=== PATIENT | male | born 1965 | race Caucasian/White ===

== ENCOUNTER 2017-07-28 13:02 | Emergency (ER) | payer MEDICARE ==
[~2017-07-28] VITALS: Ht 170.1 cm; Wt 72.6 kg
[~2017-07-28 13:02] MED LIST: AMOXICILLIN500 M2 PO; CLARITIN10 MG PO; FLONASE ALLERG9.9 ML NAS; LIDEX 0.05% CRE15 GM T; ZITHROMAX Z PA250 MG PO; ZOLOFT; ZYRTEC10 M3 PO
[2017-07-28 13:26] LABS: BASO # 0.1 10*3/uL (0.0-0.1); BASO % 0.8 % (0.0-1.0); EOS # 0.4 10*3/uL (0.0-0.4); EOS % 4.7 % (1.0-4.0); HEMATOCRIT 42.3 % (42.0-52.0); HEMOGLOBIN 14.7 g/dl (14.0-18.0); LYMPH # 2.5 10*3/uL (1.3-4.4); LYMPH % 33.1 % (27.0-41.0); MEAN CELL VOLUME 95.1 fl (80.0-94.0); MEAN CORPUSCULAR HGB CONC 34.8 g/dl (33.0-37.0); MEAN PLATELET VOLUME 9.9 fl (9.6-12.3); MONO # 0.5 10*3/uL (0.1-1.0); MONO % 7.2 % (3.0-9.0); NEUT # 4.1 10*3/uL (2.3-7.9); NEUT % 54.1 % (47.0-73.0); PLATELET COUNT AUTOMATED 163 10*3/uL (130-400); RED BLOOD COUNT 4.45 10*6/uL (4.50-5.90); RED CELL DISTRI WIDTH 13.1 % (0-14.5); WHITE BLOOD COUNT 7.5 10*3/uL (4.8-10.8)
[2017-07-28 13:35] LABS: ACT PARTIAL THROMBO TIME 26.6 SECONDS (20.8-31.5); INTERNATIONAL NORM RATIO 1.1 (2.0-3.5)
[2017-07-28 13:39] LABS: ALBUMIN 3.8 gm/dl (3.1-4.5); ALKALINE PHOSPHATASE 45 U/L (45-117); BUN 17 mg/dl (7-24); CHLORIDE 105 mmol/L (98-107); CKMB 1.4 ng/ml (0.5-3.6); CPK 145 U/L (39-308); CREATININE 1.41 mg/dL (0.70-1.30); LIPASE 148 U/L (73-393); POTASSIUM 4.1 mmol/L (3.5-5.1); SGOT/AST 19 IU/L (3-35); SGPT/ALT 14 U/L (12-78); SODIUM 134 mmol/L (136-145); TOTAL PROTEIN 7.5 gm/dL (6.4-8.2)
== END 2017-07-28 13:59 | disposition short-term general hospital (02) ==
LOC: ED 13:02
PROVIDERS: Emergency Medicine
DX: I63.9 Cerebral infarction, unspecified (principal)

== ENCOUNTER 2019-01-18 13:03 | Inpatient (IN) | payer MEDICARE ==
[~2019-01-18] VITALS: Ht 167.6 cm; Wt 78.6 kg
--- NOTE | ~2019-01-18 | EKG ---
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
--- NOTE | ~2019-01-18 | EKG ---
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
--- NOTE | ~2019-01-18 | EKG ---
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
[2019-01-18 13:04] VITALS: BP 159/97
[2019-01-18 13:15] LABS: BASO # 0.1 10*3/uL (0.0-0.1); BASO % 0.8 % (0.0-1.0); EOS % 9.5 % (1.0-4.0); HEMATOCRIT 51.5 % (42.0-52.0); HEMOGLOBIN 18.3 g/dl (14.0-18.0); LYMPH # 2.9 10*3/uL (1.3-4.4); LYMPH % 27.3 % (27.0-41.0); MEAN CELL VOLUME 94.8 fl (80.0-94.0); MEAN CORPUSCULAR HGB 33.7 pg (27.0-31.0); MEAN CORPUSCULAR HGB CONC 35.5 g/dl (33.0-37.0); MEAN PLATELET VOLUME 9.9 fl (9.6-12.3); MONO # 0.7 10*3/uL (0.1-1.0); MONO % 6.5 % (3.0-9.0); NEUT # 5.9 10*3/uL (2.3-7.9); NEUT % 55.7 % (47.0-73.0); PLATELET COUNT AUTOMATED 191 10*3/uL (130-400); RED BLOOD COUNT 5.43 10*6/uL (4.50-5.90); RED CELL DISTRI WIDTH 13.4 % (0-14.5); WHITE BLOOD COUNT 10.5 10*3/uL (4.8-10.8)
[2019-01-18 13:20] VITALS: BP 142/84
[2019-01-18 13:26] LABS: ACT PARTIAL THROMBO TIME 24.3 SECONDS (20.8-31.5)
[2019-01-18 13:31] LABS: ALBUMIN 4.4 gm/dl (3.1-4.5); ALKALINE PHOSPHATASE 58 U/L (45-117); BUN 13 mg/dl (7-24); CHLORIDE 103 mmol/L (98-107); CREATININE 1.45 mg/dL (0.70-1.30); POTASSIUM 4.2 mmol/L (3.5-5.1); SGOT/AST 21 IU/L (3-35); SGPT/ALT 23 U/L (12-78); SODIUM 136 mmol/L (136-145); TOTAL PROTEIN 8.6 gm/dL (6.4-8.2)
[2019-01-18 13:32] LABS: TROPONIN I < 0.015 ng/ml (<0.045)
[2019-01-18 14:20] VITALS: BP 156/86
--- NOTE | 2019-01-18 14:45 | NUR ---
A 53, admitted to , under the services of ANTONIO Dee DO with a diagnosis of CHEST PAIN. Chief complaint is OCCASIONAL STABBING CHEST PAIN SINCE 01/13/19. Patient arrived via bed from ER. Monitor applied. Initial assessment completed. Vital signs taken and recorded. ANTONIO DEE DO notified of admission to the unit. Orders received. See assessment for past medical history, medications and allergies. Patient and/or family oriented to unit. [facility] visitation policy reviewed. Clothing/patient valuable form completed. CORINNA REYNA
[2019-01-18 15:14] VITALS: BP 125/93
[2019-01-18] MEDS ORDERED: VITAMIN D33000 UNIT PO (15:37)
[2019-01-18] MEDS ORDERED: RISPERDAL1 M1 PO (15:37)
[2019-01-18] MEDS ORDERED: LIPITOR10 MG PO (15:38)
[2019-01-18] MEDS ORDERED: PRINIVIL10 MG PO (15:39)
[2019-01-18] MEDS ORDERED: ASPIRIN CHEWABL81 MG PO (15:39)
[2019-01-18] MEDS ORDERED: ZOLOFT50 MG PO (15:39)
[2019-01-18 16:00] VITALS: BP 125/93
--- NOTE | 2019-01-18 17:24 | NUR ---
DR. ALEXANDER'S ANSWERING SERVICE NOTIFIED OF CONSULT.
[2019-01-18 20:00] VITALS: BP 144/84
[2019-01-18] MEDS ORDERED: VITAMIN D31000 UNI1 PO (21:38)
--- NOTE | 2019-01-18 21:40 | NUR ---
NOTIFIED OF PT'S REQUESTS FOR HOME MEDS. NEW ORDERS TO FOLLOW.
[2019-01-19] VITALS: BP 135/79
--- NOTE | 2019-01-19 03:29 | NUR ---
PATIENT ASLEEP IN BED. RESPIRATIONS EASY NO S/S OF DISTRESS NOTED. WILL MONITOR. CALL LIGHT LEFT IN REACH.
[2019-01-19 06:03] LABS: BASO # 0.1 10*3/uL (0.0-0.1); EOS # 1.3 10*3/uL (0.0-0.4); EOS % 15.1 % (1.0-4.0); HEMATOCRIT 50.7 % (42.0-52.0); HEMOGLOBIN 17.8 g/dl (14.0-18.0); LYMPH # 2.3 10*3/uL (1.3-4.4); LYMPH % 26.4 % (27.0-41.0); MEAN CORPUSCULAR HGB 33.7 pg (27.0-31.0); MEAN CORPUSCULAR HGB CONC 35.1 g/dl (33.0-37.0); MEAN PLATELET VOLUME 9.9 fl (9.6-12.3); MONO # 0.7 10*3/uL (0.1-1.0); MONO % 8.4 % (3.0-9.0); NEUT # 4.3 10*3/uL (2.3-7.9); NEUT % 48.9 % (47.0-73.0); PLATELET COUNT AUTOMATED 168 10*3/uL (130-400); RED BLOOD COUNT 5.28 10*6/uL (4.50-5.90); RED CELL DISTRI WIDTH 13.3 % (0-14.5); WHITE BLOOD COUNT 8.8 10*3/uL (4.8-10.8)
[2019-01-19 06:33] LABS: BUN 19 mg/dl (7-24); CHLORIDE 104 mmol/L (98-107); SODIUM 136 mmol/L (136-145)
[2019-01-19 06:45] LABS: CHOLESTEROL 140 mg/dL (<200); CREATININE 1.23 mg/dL (0.70-1.30); HDL CHOLESTEROL 25 mg/dl (40-60); LDL CHOLESTEROL 91 mg/dL (9-159); THYROID STIM HORMONE (HS) 0.836 uIU/ml (0.358-4.75); TRIGLYCERIDES 118 mg/dl (<150); VLDL CHOLESTEROL 24 mg/dL (6-40)
[2019-01-19 07:04] LABS: VITAMIN D, 25-HYDROXY 33.9 ng/mL (30-100)
[2019-01-19 08:00] VITALS: BP 153/87
--- NOTE | 2019-01-19 09:00 | NUR ---
Doorperson in to talk to patient. Patient states lives at home with alone. There are few steps in the home. Physician: ella [facility]acy: [facility] Home health services: none Patient's level of ADLs: INDEPENDENT Patient has working utilities: all working DME: none Follow-up physician's appointment after d/c: will be made by hospitalist nurse director upon discharge Does patient want to access PORTAL?: no Discharge plan discussed with patient, patient states he lives in an apartment alone, he is independent in adls and ambulation, patient states he will be going back home when able and denies any home needs. ISMAEL ANTON
--- NOTE | 2019-01-19 09:47 | NUR ---
Spoke with Yolanda in [facility] to see if it was ok to give patient dose of lisinopril for blood pressure. Per [facility] with a small sip of water but no other medications are to be given prior to test.
[2019-01-19 12:00] VITALS: BP 145/76
--- NOTE | 2019-01-19 12:29 | NUR ---
INFORMED CONSENT OBTAINED FOR A LEXISCAN STRESS TEST WITH DR. ALEXANDER. RESTING EKG NSR WITH A HT RT OF 74 AND BP OF 124/72. BREATH SOUNDS CLEAR REBECA, POX 96% VIA RA. COMPLETED ONE MINUTE OF A LEXISCAN PROTOCOL RECEIVING LEXISCAN 0.4 MG OVER 10 SECONDS. DEVELOPED "RACING HEART" THAT WAS RELIEVED IN RECOVERY. HAD A PEAK HT RT OF 99 WITH A BP OF 118/60. LAST RECOVERY HT RT OF 95 WITH A BP OF 112/66. AWAITING NUCLEAR IMAGING IN STABLE CONDITION.
[2019-01-19 16:00] VITALS: BP 124/72
--- NOTE | 2019-01-19 17:34 | NUR ---
Discharge instructions reviewed with patient/family. Patient receptive and verbalizes understanding. Follow-up care arranged. Written instructions given to patient/family. Patient ambulated from unit with all belongings. CLAUDE GANN
== END 2019-01-19 17:34 | disposition home or self-care (01) | DRG 303 ==
LOC: ED 13:03 → EDHOLD 14:06 → 4E 14:06
PROVIDERS: Emergency Medicine; Internal Medicine; ADMIT Internal Medicine
PROC: 4A02XM4 Measurement of Cardiac Total Activity, External Approach (ICD-10-PCS; principal; 2019-01-19)
PROC: 3E073KZ Introduction of Other Diagnostic Substance into Coronary Artery, Percutaneous Approach (ICD-10-PCS; principal; 2019-01-19)
DX: I25.10 Atherosclerotic heart disease of native coronary artery without angina pectoris (principal); N18.3 Chronic kidney disease, stage 3 (moderate); D75.1 Secondary polycythemia; F32.9 Major depressive disorder, single episode, unspecified; I12.9 Hypertensive chronic kidney disease with stage 1 through stage 4 chronic kidney disease, or unspecified chronic kidney disease; F17.210 Nicotine dependence, cigarettes, uncomplicated; G47.30 Sleep apnea, unspecified; E78.00 Pure hypercholesterolemia, unspecified; E78.5 Hyperlipidemia, unspecified; Z71.6 Tobacco abuse counseling; Z86.73 Personal history of transient ischemic attack (TIA), and cerebral infarction without residual deficits; Z79.82 Long term (current) use of aspirin; Z82.3 Family history of stroke; Z83.3 Family history of diabetes mellitus; Z82.5 Family history of asthma and other chronic lower respiratory diseases; Z79.899 Other long term (current) drug therapy

== ENCOUNTER → 2021-04-10 | Outpatient (CLI) | payer MEDICARE ==
[~2021-04-10] MED LIST changes: +ASPIRIN CHEWABL81 MG PO; +LIPITOR10 MG PO; +PRINIVIL10 MG PO; +RISPERDAL1 M1 PO; +VITAMIN D31000 UNI1 PO; +VITAMIN D33000 UNIT PO; +ZOLOFT50 MG PO
[2021-04-10 11:07] LABS: HEMATOCRIT 47.8 % (42.0-52.0); MEAN CELL VOLUME 98.4 fl (80.0-94.0); MEAN CORPUSCULAR HGB 34.8 pg (27.0-31.0); MEAN CORPUSCULAR HGB CONC 35.4 g/dl (33.0-37.0); MEAN PLATELET VOLUME 10.1 fl (9.6-12.3); PLATELET COUNT AUTOMATED 197 10*3/uL (130-400); RED BLOOD COUNT 4.86 10*6/uL (4.50-5.90); RED CELL DISTRI WIDTH 13.4 % (0-14.5); RETICULOCYTE % 2.25 % (0.50-2.50); WHITE BLOOD COUNT 10.1 10*3/uL (4.8-10.8)
[2021-04-10 11:09] LABS: BILIRUBIN Negative (Negative); BLOOD Negative (Negative); CLARITY Clear (Clear); COLOR Yellow (Yellow); GLUCOSE Negative (Negative); KETONE Negative (Negative); LEUKO ESTERASE Negative (Negative); NITRITE Negative (Negative); PH 5.5 (4.5-8.0); SPECIFIC GRAVITY 1.015 (1.001-1.030); UROBILINOGEN 0.2 E.U./dl (0.0-1.0)
[2021-04-10 11:31] LABS: BACTERIA TRACE; EPITHELIAL CELLS 0-2; RBC 0-2 rbc/hpf (0-2)
[2021-04-10 11:33] LABS: BASOPHILS 2 % (0-1); TOTAL CELLS COUNTED 100 #CELLS
[2021-04-10 11:34] LABS: PLATELET SUFFICIENCY NORMAL (NORMAL); POLYCHROMASIA SLIGHT; ROULEAUX MODERATE
[2021-04-10 11:35] LABS: ALBUMIN 3.9 gm/dl (3.1-4.5); BUN 17 mg/dl (7-24); CHLORIDE 105 mmol/L (98-107); CHOLESTEROL 150 mg/dL (<200); CREATININE 1.34 mg/dL (0.70-1.30); GAMMA GLUTAMYL TRANSPEPTIDASE 30 U/L (15-85); IRON 85 ug/dL (65-175); POTASSIUM 4.3 mmol/L (3.5-5.1); SGOT/AST 18 IU/L (3-35); SODIUM 137 mmol/L (136-145); THYROXINE (T4) TOTAL 9.4 ug/dl (4.5-12.1); TRIGLYCERIDES 615 mg/dl (<150)
[2021-04-10 11:40] LABS: FERRITIN 121.5 ng/mL (22.0-322.0)
[2021-04-10 11:45] LABS: ALKALINE PHOSPHATASE 54 U/L (45-117); CPK 100 U/L (39-308); T3 UPTAKE 32 % (31-39); THYROID STIM HORMONE (HS) 0.829 uIU/ml (0.358-4.75); TOTAL IRON BINDING CAPACITY 261 ug/dl (250-450)
[2021-04-10 15:44] LABS: SGPT/ALT 33 U/L (12-78); TOTAL PROTEIN 7.8 gm/dL (6.4-8.2)
== END | disposition home or self-care (01) ==
LOC: LAB 10:42
PROVIDERS: ATTEND Family Medicine
DX: Z12.5 Encounter for screening for malignant neoplasm of prostate (principal); E78.5 Hyperlipidemia, unspecified; R79.89 Other specified abnormal findings of blood chemistry; R53.83 Other fatigue; R74.8 Abnormal levels of other serum enzymes; E55.9 Vitamin D deficiency, unspecified

== ENCOUNTER → 2021-04-19 | Outpatient (CLI) | payer MEDICARE | END | disposition home or self-care (01) | LOC: US 01:44 | PROVIDERS: ATTEND Family Medicine | DX: N28.1 Cyst of kidney, acquired (principal) ==

== ENCOUNTER → 2021-12-11 | Outpatient (CLI) | payer MEDICARE ==
[2021-12-11 09:25] LABS: MEAN CELL VOLUME 96.8 fl (80.0-94.0); MEAN CORPUSCULAR HGB 34.4 pg (27.0-31.0); MEAN CORPUSCULAR HGB CONC 35.5 g/dl (33.0-37.0); MEAN PLATELET VOLUME 10.1 fl (9.6-12.3); PLATELET COUNT AUTOMATED 201 10*3/uL (130-400); RED BLOOD COUNT 5.06 10*6/uL (4.50-5.90); RED CELL DISTRI WIDTH 12.4 % (0-14.5); RETICULOCYTE % 1.86 % (0.50-2.50); WHITE BLOOD COUNT 9.6 10*3/uL (4.8-10.8)
[2021-12-11 09:26] LABS: BILIRUBIN Negative (Negative); BLOOD Negative (Negative); CLARITY Clear (Clear); COLOR Yellow (Yellow); GLUCOSE Negative (Negative); KETONE Negative (Negative); LEUKO ESTERASE Negative (Negative); NITRITE Negative (Negative); PH 7.5 (4.5-8.0); UROBILINOGEN 0.2 E.U./dl (0.0-1.0)
[2021-12-11 09:43] LABS: ALBUMIN 4.1 gm/dl (3.1-4.5); BUN 13 mg/dl (7-24); CHLORIDE 105 mmol/L (98-107); CHOLESTEROL 137 mg/dL (<200); GAMMA GLUTAMYL TRANSPEPTIDASE 24 U/L (15-85); POTASSIUM 4.8 mmol/L (3.5-5.1); SODIUM 140 mmol/L (136-145); TRIGLYCERIDES 275 mg/dl (<150)
[2021-12-11 09:52] LABS: ALKALINE PHOSPHATASE 56 U/L (45-117); CREATININE 1.32 mg/dL (0.70-1.30); IRON 132 ug/dL (65-175); LDL CHOLESTEROL 52 mg/dL (9-159); SGOT/AST 14 IU/L (3-35); SGPT/ALT 25 U/L (12-78); THYROID STIM HORMONE (HS) 0.692 uIU/ml (0.358-4.75); TOTAL IRON BINDING CAPACITY 341 ug/dl (250-450); TOTAL PROTEIN 8.2 gm/dL (6.4-8.2)
[2021-12-11 10:02] LABS: BACTERIA 1+
[2021-12-11 10:34] LABS: ATYPICAL LYMPHS 1 % (0-0); PLATELET SUFFICIENCY NORMAL (NORMAL); POLYCHROMASIA SLIGHT; TOTAL CELLS COUNTED 100 #CELLS
[2021-12-11 12:17] LABS: FERRITIN 105.3 ng/mL (22.0-322.0); VITAMIN D, 25-HYDROXY 31.1 ng/mL (30-100)
== END | disposition home or self-care (01) ==
LOC: LAB 09:00
PROVIDERS: ATTEND Family Medicine
DX: E78.5 Hyperlipidemia, unspecified (principal); R79.89 Other specified abnormal findings of blood chemistry; R53.83 Other fatigue; E55.9 Vitamin D deficiency, unspecified

== ENCOUNTER → 2022-03-27 | Outpatient (CLI) | payer MEDICARE ==
[2022-03-27 08:44] LABS: BASO # 0.1 10*3/uL (0.0-0.1); BASO % 0.8 % (0.0-1.0); EOS # 1.6 10*3/uL (0.0-0.4); EOS % 17.3 % (1.0-4.0); HEMATOCRIT 46.4 % (42.0-52.0); LYMPH # 2.5 10*3/uL (1.3-4.4); MEAN CELL VOLUME 97.1 fl (80.0-94.0); MEAN CORPUSCULAR HGB 34.7 pg (27.0-31.0); MEAN CORPUSCULAR HGB CONC 35.8 g/dl (33.0-37.0); MEAN PLATELET VOLUME 10.3 fl (9.6-12.3); MONO # 0.8 10*3/uL (0.1-1.0); NEUT # 4.1 10*3/uL (2.3-7.9); NEUT % 44.8 % (47.0-73.0); PLATELET COUNT AUTOMATED 208 10*3/uL (130-400); RED BLOOD COUNT 4.78 10*6/uL (4.50-5.90); RED CELL DISTRI WIDTH 12.8 % (0-14.5); WHITE BLOOD COUNT 9.1 10*3/uL (4.8-10.8)
[2022-03-27 08:49] LABS: BILIRUBIN Negative (Negative); BLOOD Negative (Negative); CLARITY Clear (Clear); COLOR Yellow (Yellow); GLUCOSE Negative (Negative); KETONE Negative (Negative); LEUKO ESTERASE Negative (Negative); NITRITE Negative (Negative); UROBILINOGEN 0.2 E.U./dl (0.0-1.0)
[2022-03-27 08:56] LABS: WBC 0-2 wbc/hpf (0-5)
[2022-03-27 09:03] LABS: BUN 13 mg/dl (7-24); CHLORIDE 108 mmol/L (98-107); CREATININE 1.29 mg/dL (0.70-1.30); IRON 92 ug/dL (65-175); SODIUM 140 mmol/L (136-145)
[2022-03-27 09:04] LABS: TOTAL IRON BINDING CAPACITY 338 ug/dl (250-450)
[2022-03-27 09:33] LABS: VITAMIN D, 25-HYDROXY 29.6 ng/mL (30-100)
[2022-03-27 09:34] LABS: FERRITIN 134.3 ng/mL (22.0-322.0)
== END | disposition home or self-care (01) ==
LOC: LAB 07:52
PROVIDERS: ATTEND Internal Medicine Nephrology
DX: N18.31 Chronic kidney disease, stage 3a (principal); D63.1 Anemia in chronic kidney disease; N25.81 Secondary hyperparathyroidism of renal origin; Z79.899 Other long term (current) drug therapy

== ENCOUNTER 2022-05-19 11:32 | Emergency (ER) | payer MEDICARE ==
[~2022-05-19] VITALS: Ht 162.5 cm; Wt 82.1 kg
== END 2022-05-19 11:58 | disposition home or self-care (01) ==
LOC: ED 11:32
DX: S61.215A Laceration without foreign body of left ring finger without damage to nail, initial encounter (principal); Z79.899 Other long term (current) drug therapy; Z79.82 Long term (current) use of aspirin; W45.8XXA Other foreign body or object entering through skin, initial encounter; Y93.89 Activity, other specified; Y92.89 Other specified places as the place of occurrence of the external cause; Y99.8 Other external cause status

== ENCOUNTER → 2022-09-11 | Outpatient (CLI) | payer MEDICARE ==
[2022-09-11 08:55] LABS: BASO # 0.1 10*3/uL (0.0-0.1); BASO % 0.8 % (0.0-1.0); BILIRUBIN Negative (Negative); BLOOD Negative (Negative); CLARITY Clear (Clear); COLOR Yellow (Yellow); EOS # 1.1 10*3/uL (0.0-0.4); EOS % 14.6 % (1.0-4.0); GLUCOSE Negative (Negative); HEMATOCRIT 45.5 % (42.0-52.0); KETONE Negative (Negative); LEUKO ESTERASE Negative (Negative); LYMPH # 2.3 10*3/uL (1.3-4.4); MEAN CORPUSCULAR HGB 35.6 pg (27.0-31.0); MEAN CORPUSCULAR HGB CONC 35.6 g/dl (33.0-37.0); MEAN PLATELET VOLUME 10.1 fl (9.6-12.3); MONO # 0.6 10*3/uL (0.1-1.0); MONO % 8.5 % (3.0-9.0); NEUT # 3.3 10*3/uL (2.3-7.9); NITRITE Negative (Negative); PH 5.5 (4.5-8.0); PLATELET COUNT AUTOMATED 194 10*3/uL (130-400); RED BLOOD COUNT 4.55 10*6/uL (4.50-5.90); RED CELL DISTRI WIDTH 13.1 % (0-14.5); RETICULOCYTE % 1.63 % (0.50-2.50); SPECIFIC GRAVITY <= 1.005 (1.001-1.030); UROBILINOGEN 0.2 E.U./dl (0.0-1.0); WHITE BLOOD COUNT 7.3 10*3/uL (4.8-10.8)
[2022-09-11 09:14] LABS: ALKALINE PHOSPHATASE 58 U/L (45-117); BUN 16 mg/dl (7-24); CHLORIDE 108 mmol/L (98-107); CHOLESTEROL 127 mg/dL (<200); CREATININE 1.23 mg/dL (0.70-1.30); GAMMA GLUTAMYL TRANSPEPTIDASE 17 U/L (15-85); IRON 147 ug/dL (65-175); POTASSIUM 4.3 mmol/L (3.5-5.1); SGOT/AST 19 IU/L (3-35); SGPT/ALT 28 U/L (12-78); SODIUM 141 mmol/L (136-145); TOTAL PROTEIN 7.7 gm/dL (6.4-8.2); TRIGLYCERIDES 426 mg/dl (<150)
[2022-09-11 09:20] LABS: THYROID STIM HORMONE (HS) 0.498 uIU/ml (0.358-4.75)
== END | disposition home or self-care (01) ==
LOC: LAB 08:33
PROVIDERS: ATTEND Family Medicine
DX: R79.89 Other specified abnormal findings of blood chemistry (principal); R53.83 Other fatigue; E78.5 Hyperlipidemia, unspecified

== ENCOUNTER → 2022-12-08 | Outpatient (CLI) | payer MEDICARE ==
[2022-12-08 08:18] LABS: BILIRUBIN Negative (Negative); BLOOD Negative (Negative); CLARITY Clear (Clear); COLOR Yellow (Yellow); GLUCOSE Negative (Negative); KETONE Negative (Negative); LEUKO ESTERASE Negative (Negative); NITRITE Negative (Negative); PH 6.5 (4.5-8.0); SPECIFIC GRAVITY <= 1.005 (1.001-1.030); UROBILINOGEN 0.2 E.U./dl (0.0-1.0)
[2022-12-08 08:20] LABS: BASO # 0.1 10*3/uL (0.0-0.1); BASO % 0.8 % (0.0-1.0); EOS # 1.4 10*3/uL (0.0-0.4); EOS % 15.5 % (1.0-4.0); LYMPH # 2.2 10*3/uL (1.3-4.4); LYMPH % 24.2 % (27.0-41.0); MEAN CELL VOLUME 99.8 fl (80.0-94.0); MEAN CORPUSCULAR HGB 34.9 pg (27.0-31.0); MEAN PLATELET VOLUME 10.1 fl (9.6-12.3); MONO # 0.8 10*3/uL (0.1-1.0); MONO % 8.8 % (3.0-9.0); NEUT # 4.6 10*3/uL (2.3-7.9); NEUT % 50.5 % (47.0-73.0); PLATELET COUNT AUTOMATED 214 10*3/uL (130-400); RED BLOOD COUNT 4.81 10*6/uL (4.50-5.90); RED CELL DISTRI WIDTH 12.9 % (0-14.5); WHITE BLOOD COUNT 9.1 10*3/uL (4.8-10.8)
[2022-12-08 08:35] LABS: BUN 14 mg/dl (9-23); CHLORIDE 101 mmol/L (98-107); POTASSIUM 4.2 mmol/L (3.4-5.1)
[2022-12-08 09:18] LABS: URINE CREATININE RANDOM 32.95 mg/dL
[2022-12-08 10:54] LABS: VITAMIN D, 25-HYDROXY 38.3 ng/mL (30-100)
== END | disposition home or self-care (01) ==
LOC: LAB 07:47
PROVIDERS: ATTEND Internal Medicine Nephrology
DX: N18.31 Chronic kidney disease, stage 3a (principal); N25.81 Secondary hyperparathyroidism of renal origin; D63.1 Anemia in chronic kidney disease; Z79.899 Other long term (current) drug therapy

== ENCOUNTER → 2023-02-07 | Outpatient (CLI) | payer MEDICARE ==
[2023-02-07 08:17] LABS: BASO # 0.1 10*3/uL (0.0-0.1); BASO % 0.9 % (0.0-1.0); EOS # 1.3 10*3/uL (0.0-0.4); EOS % 16.4 % (1.0-4.0); HEMATOCRIT 47.3 % (42.0-52.0); MEAN CELL VOLUME 97.9 fl (80.0-94.0); MEAN CORPUSCULAR HGB 34.6 pg (27.0-31.0); MEAN CORPUSCULAR HGB CONC 35.3 g/dl (33.0-37.0); MEAN PLATELET VOLUME 10.2 fl (9.6-12.3); MONO # 0.7 10*3/uL (0.1-1.0); MONO % 8.6 % (3.0-9.0); NEUT # 3.7 10*3/uL (2.3-7.9); PLATELET COUNT AUTOMATED 213 10*3/uL (130-400); RED BLOOD COUNT 4.83 10*6/uL (4.50-5.90); RED CELL DISTRI WIDTH 12.2 % (0-14.5); RETICULOCYTE % 1.87 % (0.50-2.50); WHITE BLOOD COUNT 7.8 10*3/uL (4.8-10.8)
[2023-02-07 08:24] LABS: BILIRUBIN Negative (Negative); BLOOD Negative (Negative); CLARITY Clear (Clear); COLOR Yellow (Yellow); GLUCOSE Negative (Negative); KETONE Negative (Negative); LEUKO ESTERASE Negative (Negative); NITRITE Negative (Negative); PH 5.5 (4.5-8.0); UROBILINOGEN 0.2 E.U./dl (0.0-1.0)
[2023-02-07 08:38] LABS: ALKALINE PHOSPHATASE 61 U/L (46-116); BUN 15 mg/dl (9-23); CHLORIDE 108 mmol/L (98-107); CHOLESTEROL 138 mg/dL (<200); GAMMA GLUTAMYL TRANSPEPTIDASE 22 U/L (0-73); LDL CHOLESTEROL 78 mg/dL (9-159); POTASSIUM 4.2 mmol/L (3.4-5.1); SGPT/ALT 16 U/L (10-49); T3 UPTAKE 23.6 % (22.4-36.7); THYROXINE (T4) TOTAL 6.3 ug/dl (4.5-10.9); TOTAL PROTEIN 7.7 gm/dL (6.0-8.0); TRIGLYCERIDES 167 mg/dl (<150); URIC ACID 4.1 mg/dL (3.7-9.2)
[2023-02-07 08:48] LABS: BACTERIA TRACE; EPITHELIAL CELLS 0-2; RBC 0-2 rbc/hpf (0-2); WBC 0-2 wbc/hpf (0-5)
[2023-02-07 09:45] LABS: VITAMIN D, 25-HYDROXY 45.4 ng/mL (30-100)
[2023-02-09 13:06] LABS: ANTI-DSDNA ANTIBODIES 3 IU/mL (0-9)
== END | disposition home or self-care (01) ==
LOC: LAB 07:35
PROVIDERS: ATTEND Family Medicine
DX: R79.89 Other specified abnormal findings of blood chemistry (principal); E55.9 Vitamin D deficiency, unspecified; R53.83 Other fatigue; R74.8 Abnormal levels of other serum enzymes; E78.5 Hyperlipidemia, unspecified; R06.02 Shortness of breath

== ENCOUNTER → 2023-02-19 | Outpatient (CLI) | payer MEDICARE | END | disposition home or self-care (01) | LOC: MRI 02:09 | PROVIDERS: ATTEND Family Medicine | DX: G93.89 Other specified disorders of brain (principal); I67.82 Cerebral ischemia; H74.8X1 Other specified disorders of right middle ear and mastoid ==

== ENCOUNTER → 2023-03-10 | Outpatient (CLI) | payer MEDICARE | LOC: US 02:04 | PROVIDERS: ATTEND Family Medicine | DX: I65.23 Occlusion and stenosis of bilateral carotid arteries (principal); I66.9 Occlusion and stenosis of unspecified cerebral artery ==

== ENCOUNTER 2023-06-03 14:25 | Emergency (ER) | payer MEDICARE ==
[~2023-06-03] VITALS: Ht 167.6 cm; Wt 85.3 kg
[2023-06-03 14:55] LABS: BASO # 0.1 10*3/uL (0.0-0.1); BASO % 0.8 % (0.0-1.0); EOS # 1.3 10*3/uL (0.0-0.4); EOS % 15.3 % (1.0-4.0); HEMATOCRIT 45.2 % (42.0-52.0); LYMPH # 2.8 10*3/uL (1.3-4.4); LYMPH % 31.9 % (27.0-41.0); MEAN CELL VOLUME 97.8 fl (80.0-94.0); MEAN CORPUSCULAR HGB 35.3 pg (27.0-31.0); MEAN CORPUSCULAR HGB CONC 36.1 g/dl (33.0-37.0); MEAN PLATELET VOLUME 10.1 fl (9.6-12.3); MONO % 10.9 % (3.0-9.0); NEUT # 3.6 10*3/uL (2.3-7.9); PLATELET COUNT AUTOMATED 207 10*3/uL (130-400); RED BLOOD COUNT 4.62 10*6/uL (4.50-5.90); WHITE BLOOD COUNT 8.8 10*3/uL (4.8-10.8)
[2023-06-03 15:06] LABS: ACT PARTIAL THROMBO TIME 30.6 SECONDS (20.0-32.1); INTERNATIONAL NORM RATIO 1.1 (2.0-3.5)
[2023-06-03 15:33] LABS: ALKALINE PHOSPHATASE 58 U/L (46-116); BUN 14 mg/dl (9-23); CHLORIDE 109 mmol/L (98-107); SGPT/ALT 18 U/L (10-49); TOTAL PROTEIN 7.8 gm/dL (6.0-8.0)
== END 2023-06-03 17:37 | disposition home or self-care (01) ==
LOC: ED 14:25
PROVIDERS: Emergency Medicine
DX: R07.89 Other chest pain (principal); J44.9 Chronic obstructive pulmonary disease, unspecified; I10 Essential (primary) hypertension; E78.00 Pure hypercholesterolemia, unspecified; F32.A Depression, unspecified; Z98.890 Other specified postprocedural states; F17.200 Nicotine dependence, unspecified, uncomplicated

== ENCOUNTER → 2023-06-17 | Outpatient (CLI) | payer MEDICARE ==
[2023-06-17 08:12] LABS: BASO # 0.1 10*3/uL (0.0-0.1); BASO % 0.8 % (0.0-1.0); EOS # 1.3 10*3/uL (0.0-0.4); HEMATOCRIT 45.4 % (42.0-52.0); LYMPH # 2.1 10*3/uL (1.3-4.4); LYMPH % 26.7 % (27.0-41.0); MEAN CELL VOLUME 100.2 fl (80.0-94.0); MEAN CORPUSCULAR HGB 35.1 pg (27.0-31.0); MEAN PLATELET VOLUME 10.2 fl (9.6-12.3); MONO # 0.8 10*3/uL (0.1-1.0); MONO % 10.7 % (3.0-9.0); NEUT # 3.6 10*3/uL (2.3-7.9); NEUT % 45.5 % (47.0-73.0); PLATELET COUNT AUTOMATED 212 10*3/uL (130-400); RED BLOOD COUNT 4.53 10*6/uL (4.50-5.90); RED CELL DISTRI WIDTH 13.1 % (0-14.5); WHITE BLOOD COUNT 7.9 10*3/uL (4.8-10.8)
[2023-06-17 08:21] LABS: BILIRUBIN Negative (Negative); BLOOD Negative (Negative); CLARITY Clear (Clear); COLOR Yellow (Yellow); GLUCOSE Negative (Negative); KETONE Negative (Negative); LEUKO ESTERASE Negative (Negative); NITRITE Negative (Negative); SPECIFIC GRAVITY 1.015 (1.001-1.030); UROBILINOGEN 0.2 E.U./dl (0.0-1.0)
[2023-06-17 08:30] LABS: URINE CREATININE RANDOM 90.99 mg/dL
[2023-06-17 08:34] LABS: BUN 16 mg/dl (9-23); CHLORIDE 106 mmol/L (98-107); POTASSIUM 4.1 mmol/L (3.4-5.1)
[2023-06-17 09:04] LABS: VITAMIN D, 25-HYDROXY 47.7 ng/mL (30-100)
[2023-06-17 11:01] LABS: BACTERIA TRACE; EPITHELIAL CELLS 0-2; WBC 0-2 wbc/hpf (0-5)
== END | disposition home or self-care (01) ==
LOC: LAB 07:37
PROVIDERS: ATTEND Internal Medicine Nephrology
DX: N18.31 Chronic kidney disease, stage 3a (principal); D63.1 Anemia in chronic kidney disease; N25.81 Secondary hyperparathyroidism of renal origin; R53.83 Other fatigue

== ENCOUNTER → 2023-07-17 | Outpatient (CLI) | payer MEDICARE ==
[2023-07-17 08:04] LABS: BASO # 0.1 10*3/uL (0.0-0.1); BASO % 0.9 % (0.0-1.0); EOS # 1.1 10*3/uL (0.0-0.4); EOS % 13.4 % (1.0-4.0); HEMATOCRIT 46.6 % (42.0-52.0); LYMPH # 2.1 10*3/uL (1.3-4.4); LYMPH % 25.8 % (27.0-41.0); MEAN CELL VOLUME 98.1 fl (80.0-94.0); MEAN CORPUSCULAR HGB 35.4 pg (27.0-31.0); MEAN CORPUSCULAR HGB CONC 36.1 g/dl (33.0-37.0); MEAN PLATELET VOLUME 9.9 fl (9.6-12.3); MONO # 0.7 10*3/uL (0.1-1.0); MONO % 8.2 % (3.0-9.0); NEUT # 4.2 10*3/uL (2.3-7.9); NEUT % 51.6 % (47.0-73.0); PLATELET COUNT AUTOMATED 219 10*3/uL (130-400); RED BLOOD COUNT 4.75 10*6/uL (4.50-5.90); RED CELL DISTRI WIDTH 12.9 % (0-14.5); WHITE BLOOD COUNT 8.1 10*3/uL (4.8-10.8)
[2023-07-17 08:07] LABS: BILIRUBIN Negative (Negative); BLOOD Negative (Negative); CLARITY Clear (Clear); COLOR Yellow (Yellow); GLUCOSE Negative (Negative); KETONE Negative (Negative); LEUKO ESTERASE Negative (Negative); NITRITE Negative (Negative); SPECIFIC GRAVITY <= 1.005 (1.001-1.030); UROBILINOGEN 0.2 E.U./dl (0.0-1.0)
[2023-07-17 08:19] LABS: RBC 0-2 rbc/hpf (0-2); WBC 0-2 wbc/hpf (0-5)
[2023-07-17 08:37] LABS: ALKALINE PHOSPHATASE 64 U/L (46-116); BUN 10 mg/dl (9-23); CHLORIDE 108 mmol/L (98-107); CHOLESTEROL 143 mg/dL (<200); GAMMA GLUTAMYL TRANSPEPTIDASE 22 U/L (0-73); POTASSIUM 4.3 mmol/L (3.4-5.1); SGPT/ALT 19 U/L (10-49); T3 UPTAKE 26.4 % (22.4-36.7); THYROXINE (T4) TOTAL 5.8 ug/dl (4.5-10.9); TOTAL PROTEIN 7.5 gm/dL (6.0-8.0); TRIGLYCERIDES 407 mg/dl (<150)
[2023-07-17 09:33] LABS: VITAMIN D, 25-HYDROXY 37.9 ng/mL (30-100)
== END | disposition home or self-care (01) ==
LOC: LAB 07:34
PROVIDERS: ATTEND Family Medicine
DX: Z12.5 Encounter for screening for malignant neoplasm of prostate (principal); E78.5 Hyperlipidemia, unspecified; E55.9 Vitamin D deficiency, unspecified; R79.89 Other specified abnormal findings of blood chemistry; R53.83 Other fatigue; R06.02 Shortness of breath

== ENCOUNTER → 2024-02-08 | Outpatient (CLI) | payer MEDICARE ==
[2024-02-08 08:46] LABS: BASO # 0.1 10*3/uL (0.0-0.1); BASO % 1.1 % (0.0-1.0); EOS # 1.1 10*3/uL (0.0-0.4); EOS % 13.8 % (1.0-4.0); HEMATOCRIT 48.3 % (42.0-52.0); LYMPH # 2.3 10*3/uL (1.3-4.4); LYMPH % 28.8 % (27.0-41.0); MEAN CORPUSCULAR HGB 33.9 pg (27.0-31.0); MEAN CORPUSCULAR HGB CONC 34.6 g/dl (33.0-37.0); MEAN PLATELET VOLUME 10.1 fl (9.6-12.3); MONO # 0.8 10*3/uL (0.1-1.0); MONO % 9.6 % (3.0-9.0); NEUT # 3.8 10*3/uL (2.3-7.9); NEUT % 46.6 % (47.0-73.0); PLATELET COUNT AUTOMATED 220 10*3/uL (130-400); RED BLOOD COUNT 4.93 10*6/uL (4.50-5.90); RED CELL DISTRI WIDTH 12.8 % (0-14.5); RETICULOCYTE % 1.71 % (0.50-2.50); WHITE BLOOD COUNT 8.1 10*3/uL (4.8-10.8)
[2024-02-08 08:49] LABS: BILIRUBIN Negative (Negative); BLOOD Negative (Negative); CLARITY Clear (Clear); COLOR Yellow (Yellow); GLUCOSE Negative (Negative); KETONE Negative (Negative); LEUKO ESTERASE Negative (Negative); NITRITE Negative (Negative); PH 5.5 (4.5-8.0); UROBILINOGEN 0.2 E.U./dl (0.0-1.0)
[2024-02-08 08:56] LABS: EPITHELIAL CELLS 0-2; RBC 0-2 rbc/hpf (0-2); WBC 0-2 wbc/hpf (0-5)
[2024-02-08 09:29] LABS: ALKALINE PHOSPHATASE 64 U/L (46-116); BUN 14 mg/dl (9-23); CHLORIDE 105 mmol/L (98-107); CHOLESTEROL 141 mg/dL (<200); GAMMA GLUTAMYL TRANSPEPTIDASE 27 U/L (0-73); POTASSIUM 4.6 mmol/L (3.4-5.1); SGPT/ALT 21 U/L (5-49); T3 UPTAKE 28.2 % (22.4-36.7); THYROXINE (T4) TOTAL 5.2 ug/dl (4.5-10.9); TRIGLYCERIDES 479 mg/dl (<150); VITAMIN D, 25-HYDROXY 34.1 ng/mL (30-100)
== END ==
LOC: LAB 08:15
PROVIDERS: ATTEND Family Medicine
DX: Z12.5 Encounter for screening for malignant neoplasm of prostate (principal); R79.89 Other specified abnormal findings of blood chemistry; R53.83 Other fatigue; E55.9 Vitamin D deficiency, unspecified; E78.5 Hyperlipidemia, unspecified; R74.8 Abnormal levels of other serum enzymes

== ENCOUNTER → 2025-06-22 | Outpatient (CLI) | payer MEDICARE ==
[2025-06-22 08:10] LABS: BASO # 0.1 10*3/uL (0.0-0.1); BASO % 0.8 % (0.0-1.0); BILIRUBIN Negative (Negative); BLOOD Negative (Negative); CLARITY Clear (Clear); COLOR Yellow (Yellow); EOS # 1.1 10*3/uL (0.0-0.4); EOS % 13.5 % (1.0-4.0); KETONE Negative (Negative); LEUKO ESTERASE Negative (Negative); MEAN CELL VOLUME 97.7 fl (80.0-94.0); MEAN CORPUSCULAR HGB 33.7 pg (27.0-31.0); MEAN PLATELET VOLUME 9.7 fl (9.6-12.3); MONO # 0.8 10*3/uL (0.1-1.0); MONO % 9.6 % (3.0-9.0); NEUT # 4.5 10*3/uL (2.3-7.9); NEUT % 53.0 % (47.0-73.0); NITRITE Negative (Negative); NUCLEATED RED BLOOD CELL 0.0 % (0.0-0.0); NUCLEATED RED BLOOD CELL 0.0 10*3/uL (0.0-0.0); PH 5.5 (4.5-8.0); PLATELET COUNT AUTOMATED 204 10*3/uL (130-400); RED CELL DISTRI WIDTH 13.2 % (0-14.5); RETICULOCYTE % 2.17 % (0.50-2.50); SPECIFIC GRAVITY <= 1.005 (1.001-1.030); UROBILINOGEN 0.2 E.U./dl (0.0-1.0)
[2025-06-22 08:27] LABS: BACTERIA TRACE; RBC 0-2 rbc/hpf (0-2)
[2025-06-22 09:23] LABS: BUN 13 mg/dl (9-23); GAMMA GLUTAMYL TRANSFERASE 19 U/L (0-73); LDL CHOLESTEROL 84 mg/dL (9-159); SGPT/ALT 9 U/L (5-49); T3 UPTAKE 36.7 % (22.4-36.7); THYROXINE (T4) TOTAL 6.3 ug/dl (4.5-10.9); VITAMIN D, 25-HYDROXY 47.8 ng/mL (30-100)
== END | disposition home or self-care (01) ==
LOC: LAB 07:44
PROVIDERS: ATTEND Family Medicine
DX: Z12.5 Encounter for screening for malignant neoplasm of prostate (principal); E55.9 Vitamin D deficiency, unspecified; R79.89 Other specified abnormal findings of blood chemistry; R53.83 Other fatigue; Z79.899 Other long term (current) drug therapy

== ENCOUNTER → 2025-07-08 | Outpatient (CLI) | payer MEDICARE | LOC: RAD 07:16 | PROVIDERS: ATTEND Family Medicine | DX: R06.02 Shortness of breath (principal); M47.814 Spondylosis without myelopathy or radiculopathy, thoracic region ==

== ENCOUNTER → 2025-08-07 | Outpatient (CLI) | payer MEDICARE ==
[~2025-08-07] MED LIST changes: +GADOTERATE MEGLUMINE 7.5 MMOL/15 ML VIAL IV ONE
== END | disposition home or self-care (01) ==
LOC: MRI 08:20
PROVIDERS: ATTEND Family Medicine
DX: H74.8X3 Other specified disorders of middle ear and mastoid, bilateral (principal); M92.72 Juvenile osteochondrosis of metatarsus, left foot; Z86.73 Personal history of transient ischemic attack (TIA), and cerebral infarction without residual deficits

== ENCOUNTER → 2025-08-15 | Outpatient (CLI) | payer MEDICARE ==
[~2025-08-15] MED LIST changes: -GADOTERATE MEGLUMINE 7.5 MMOL/15 ML VIAL IV ONE
== END | disposition home or self-care (01) ==
LOC: US 07-25 07:30
PROVIDERS: ATTEND Family Medicine
DX: R10.84 Generalized abdominal pain (principal); R10.2 Pelvic and perineal pain